=== PATIENT | male | born 1955 | race Caucasian/White ===

== ENCOUNTER 2017-11-29 16:45 | Observation (INO) | payer BC ==
[2017-11-29 17:31] LABS: #Basophils 0.1 thou/uL (0.0-0.2); #Eosinphils 0.4 thou/uL (0.0-0.7); #Lymphocytes 1.4 thou/uL (1.20-3.40); #Monocytes 0.5 thou/uL (0.11-0.59); #Neutrophils 4.4 thou/uL (1.40-6.50); %Basophils 1.1 % (0.0-1.0); %Eosinophils 5.6 % (0.0-10.0); %Lymphocytes 21.3 % (21.0-51.0); %Monocytes 6.7 % (0.0-10.0); %Neutrophils 65.2 % (42.0-75.0); Hemoglobin 15.5 g/dL (14.0-18.0); Mean Corpuscular HGB CONC 35.3 g/dL (32.0-36.0); Mean Corpuscular Volume 84.9 fL (78.0-98.0); Platelet Count 160 thou/uL (130-400); RBC Distribution Width 11.3 % (11.5-14.5); Red Blood Cell (RBC) Count 5.17 mill/uL (4.70-6.10); White Blood Cell (WBC) Count 6.7 thou/uL (4.8-10.8)
[2017-11-29 17:42] LABS: ALT (SGPT) 17 U/L (8-55); AST (SGOT) 14 U/L (5-34); Albumin 4.2 g/dL (3.4-4.8); Alkaline Phosphatase 56 U/L (40-150); Anion Gap 13 mmol/L (10-20); BUN (Urea Nitrogen) 16 mg/dL (8.4-25.7); Bilirubin, Total 0.6 mg/dL (0.2-1.2); Calc. Creatinine Clearance 0 mL/min (70-130); Calcium 9.2 mg/dL (7.8-10.44); Carbon Dioxide 25 mmol/L (23-31); Chloride 108 mmol/L (98-107); Estimated GFR-MDRD 81; Globulin 2.4 g/dL (2.4-3.5); Glucose 93 mg/dL (80-115); Lipase 18 U/L (8-78); Potassium 3.9 mmol/L (3.5-5.1); Protein, Total 6.6 g/dL (5.8-8.1); Sodium 142 mmol/L (136-145)
[2017-11-29 17:43] LABS: CKMB 0.7 ng/mL (0-6.6); Troponin I Less than 0.010 ng/mL (< 0.028)
[2017-11-29] MEDS ORDERED: Nitroglycerin 2% Ointment 1 INCH/1 GM Packet ONE (17:52)
--- NOTE | 2017-11-29 17:56 | RAD ---
CHEST ONE VIEW: 11/29/17 FINDINGS: No comparison. The cardiac silhouette is magnified by projection. Pulmonary vasculature is unremarkable. Mediastinum is midline. Calcified granulomata are consistent with healed granulomatous disease. No lobar consoli dation or evidence of pneumothorax. IMPRESSION: No active cardiopulmonary abnormalities are demonstrated. POS: [facility]
[2017-11-29 20:39] LABS: Troponin I Less than 0.010 ng/mL (< 0.028)
[2017-11-29 20:44] VITALS: BMI 22.8
[2017-11-29] MEDS ORDERED: Propranolol 10 MG TAB PO PRN (20:46)
[2017-11-29] MEDS ORDERED: Ondansetron HCl/PF 4 MG/2 ML Vial IVP PRN (20:47)
[2017-11-29] MEDS ORDERED: Acetaminophen 325 MG TAB PO PRN (20:47)
[2017-11-29] MEDS ORDERED: Nitroglycerin 0.4 MG TAB (25 Tab Bottle) PO PRN (20:49)
[2017-11-29] MEDS ORDERED: HumaLOG 300 UNITS/3 ML VIAL SC PRN (20:50)
[2017-11-29] MEDS ORDERED: Dextrose 5% in Water 1,000 ML IV PRN (20:50)
[2017-11-29] MEDS ORDERED: Dextrose 50% Abboject 50 ML SYRINGE SLOW IVP PRN (20:50)
[2017-11-29] MEDS ORDERED: Atorvastatin Calcium 10 MG TAB PO SCH (21:00)
[2017-11-29] MEDS ORDERED: metFORMIN XR 500 MG TAB PO SCH (21:00)
[2017-11-29] MEDS ORDERED: Lisinopril 2.5 MG TAB PO SCH (21:00)
[2017-11-29] MEDS ORDERED: Zolpidem Tartrate 5 MG TAB PO SCH (21:00)
[2017-11-29 23:25] LABS: Troponin I Less than 0.010 ng/mL (< 0.028)
--- NOTE | 2017-11-30 05:18 | HP ---
TIME OF EVALUATION: 8:35 p.m. PRIMARY CARE PHYSICIAN: Dr. Pipe Ramirez. CODE STATUS: FULL CODE. CHIEF COMPLAINT: Chest pain. HISTORY OF PRESENT ILLNESS: This is a 62-year-old male patient with past medical history of hyperten leona, hyperlipidemia, diabetes type 2, that is usually in well controlled, came to the hospital, also having midsternal chest pain that started around 12, lasted for about 30 minutes, resolved by itself , with no clear triggers; however, he reported having some worsening with exertion, associated with n ausea. He reported this was his very first time having this problem. REVIEW OF SYSTEMS: Constitutional: No fever or chills or generalized weakness. Respiratory: No co ugh, sputum production, or shortness of breath. Cardiovascular: The patient had chest pain. No pal pitations, no shortness of breath. Gastrointestinal: No nausea, no vomiting, diarrhea, or abdominal pain. Central Nervous Systems: No dizziness, headache, or feeling lightheaded. Genitourinary: No burning on urination. Extremities: No leg swelling. All other systems were reviewed and negative except for the findings mentioned above. PAST MEDICAL HISTORY: As mentioned in the HPI. SOCIAL HISTORY: Lives with . PSYCHIATRIC HISTORY: No previous psychiatric history. FAMILY HISTORY: The patient has a brother who had coronary artery disease in the 61 and also mother with coronary artery disease. ALLERGIES: No known drug allergies. REPORTED MEDICATIONS: Ambien, Concerta, Januvia, lisinopril, metformin, propranolol, atenolol, chlor thalidone, atorvastatin. PHYSICAL EXAMINATION: VITAL SIGNS: On presentation, blood pressure 123/84, heart rate 69, respiratory rate was 18, tempera ture 97.7, oxygen saturation is 98 on room air. GENERAL APPEARANCE: Patient is alert, oriented, in no any acute distress. HEENT: Eyes: Normal conjunctivae. Moist oral mucosa. Anicteric. NECK: No JVD. RESPIRATORY: Bilaterally air entry. No rales, no wheezing. Symmetric expansion. CARDIOVASCULAR: Normal rate, regular rhythm. No murmurs, no gallop. EXTREMITIES: No edema. ABDOMEN: Soft, normal bowel sounds. MUSCULOSKELETAL: Baseline range of motion and strength. No tenderness. Peripheral pulses are prese nt. Capillary refill seems to be intact. SKIN: Warm and intact. No pallor, no rash, no redness. NEUROLOGIC: Baseline sensorium. No evidence of any new focal weakness. Baseline speech. Cranial n erve seems to be intact. PSYCHIATRIC: The patient is in a good mood. No anxiety. Oriented, optimal judgment. IMAGING: EKG was reviewed. The patient has normal sinus rhythm at the rate of 69. Only findings fo r acute ischemia. Chest x-ray was reviewed, no acute cardiopulmonary process. LABORATORY DATA: Reviewed. The patient has white count of 6.7, hemoglobin 15.5, MCV 84, platelet co unt 116,000. Glucose was normal. Troponin was negative x2. ASSESSMENT AND PLAN: The patient will be placed in the hospital with following medical problems: 1. Chest pain, rule out acute coronary syndrome. The patient has typical chest pain. Patient has r isk factors including hypertension, diabetes. We will do a stress test in the morning, if the workup is negative, patient is agreeable for the test, he fully understood test in the morning. 2. Uncontrolled diabetes, initially was controlled with glucose [address] the patient o n sliding scale for optimal control. 3. Controlled high blood pressure. Reconcile home medications. Adjust treatment as needed. 4. Hyperlipidemia. Advised to eat with low cholesterol. Reconcile home medications. 5. Deep venous thrombosis prophylaxis.
[2017-11-30 07:10] LABS: #Basophils 0.1 thou/uL (0.0-0.2); #Eosinphils 0.5 thou/uL (0.0-0.7); #Lymphocytes 1.4 thou/uL (1.20-3.40); #Monocytes 0.6 thou/uL (0.11-0.59); #Neutrophils 4.1 thou/uL (1.40-6.50); %Basophils 0.9 % (0.0-1.0); %Eosinophils 6.9 % (0.0-10.0); %Lymphocytes 21.6 % (21.0-51.0); %Monocytes 9.5 % (0.0-10.0); %Neutrophils 61.1 % (42.0-75.0); Hemoglobin 14.6 g/dL (14.0-18.0); Mean Corpuscular HGB CONC 33.8 g/dL (32.0-36.0); Mean Corpuscular Hemoglobin 31.2 pg (27.0-31.0); Mean Corpuscular Volume 92.4 fL (78.0-98.0); Mean Platelet Volume 8.1 fL (7.4-10.4); Platelet Count 151 thou/uL (130-400); RBC Distribution Width 12.2 % (11.5-14.5); Red Blood Cell (RBC) Count 4.69 mill/uL (4.70-6.10); White Blood Cell (WBC) Count 6.6 thou/uL (4.8-10.8)
[2017-11-30 07:12] LABS: Anion Gap 8 mmol/L (10-20); BUN (Urea Nitrogen) 17 mg/dL (8.4-25.7); Calc. Creatinine Clearance 79 mL/min (70-130); Calcium 9.1 mg/dL (7.8-10.44); Carbon Dioxide 29 mmol/L (23-31); Chloride 108 mmol/L (98-107); Estimated GFR-MDRD 79; Glucose 104 mg/dL (80-115); Potassium 3.9 mmol/L (3.5-5.1); Sodium 141 mmol/L (136-145)
[2017-11-30] MEDS ORDERED: Aspirin 325 MG TAB PO SCH (09:00)
[2017-11-30] MEDS ORDERED: Methylphenidate Hcl [Concerta] 18 MG PO SCH (09:00)
[2017-11-30] MEDS ORDERED: Alogliptin 6.25 MG TAB PO SCH (09:00)
[2017-11-30] MEDS ORDERED: Enoxaparin Sodium 40 MG/0.4 ML SYRINGE SC SCH (09:00)
[2017-11-30 11:19] VITALS: BP 111/74; TEMP 98.5
--- NOTE | 2017-12-01 00:45 | DIS ---
DATE OF ADMISSION: 11/29/2017 DATE OF DISCHARGE: 11/30/2017 DISCHARGE DIAGNOSES: As of the following; 1. Chest pain. 2. History of anxiety. 3. History of hypertension. 4. History of diabetes. 5. History of hyperlipidemia. HOSPITAL COURSE: The patient is a very pleasant 62-year-old male with a history of hypertension, noe reece, who presented to the hospital with complaints of shortness of breath and chest tightness. The patient's troponins x3 were negative. The patient stated that he was eating food when he had this s ignificant chest discomfort. Patient underwent a treadmill stress test which was negative. His ches t pain was most likely due to esophageal spasms. Patient was discharged home. He will follow up wit h his PCP as an outpatient. The patient was asked to come back if any of the symptoms worsen or his chest pain return. PHYSICAL EXAMINATION: VITAL SIGNS: 98.5, 70, 16, 98% on room air, 111/74. GENERAL: He is awake, alert, oriented x3, does not appear in distress. CARDIOVASCULAR: S1, S2 present. No murmurs, rubs, or gallops. ABDOMEN: Soft, nontender. Bowel sounds are present x2. EXTREMITIES: No edema. DISCHARGE INSTRUCTIONS: Again, the patient will be discharged home. He will follow up with PCP as kimberli bhat. MEDICATIONS: As of the following, propranolol 5 mg p.r.n. , Januvia 50 mg at bedtime, metformin 1000 mg at bedtime, Ambien 5 mg at bedtime, lisinopril 2.5 mg at bedtime, atorvastatin 10 mg at bedt huber, and methylphenidate 18 mg p.o. daily.
== END 2017-11-30 11:33 | disposition home or self-care (01) ==
LOC: SCSER 16:45 → 2SW 18:40
PROVIDERS: ADMIT Family Medicine; ATTEND Family Medicine
DX: R07.9 Chest pain, unspecified (principal); E11.9 Type 2 diabetes mellitus without complications; E78.5 Hyperlipidemia, unspecified; I10 Essential (primary) hypertension; Z79.84 Long term (current) use of oral hypoglycemic drugs; Z79.899 Other long term (current) drug therapy
CPT/HCPCS: 36415; 36416; 71045; 80048; 80053; 82553; 83690; 84484; 85025; 93005; 93017; 94760; 96372; G0378; J1650

== ENCOUNTER 2018-12-16 17:48 | Emergency (ER) | payer BC ==
[2018-12-16] MEDS ORDERED: Adacel (T-DAP) 0.5 ML SYRINGE ONE (18:12)
--- NOTE | 2018-12-16 18:29 | RAD ---
LEFT LITTLE FINGER: 12/16/18 HISTORY: Injury to finger. There is a soft tissue laceration to the tip of the finger. There is no underlying fracture. No radio paque foreign bodies. IMPRESSION: No evidence of fracture. POS: [facility]
[2018-12-16] MEDS ORDERED: Lidocaine 1% 20 ML MDV ONE (18:55)
[2018-12-16] MEDS ORDERED: Bacitracin 1 PK ONE (19:46)
== END 2018-12-16 19:52 | disposition home or self-care (01) ==
LOC: SCSER 17:48
DX: S61.217A Laceration without foreign body of left little finger without damage to nail, initial encounter (principal); E11.9 Type 2 diabetes mellitus without complications; E78.5 Hyperlipidemia, unspecified; I10 Essential (primary) hypertension; F41.9 Anxiety disorder, unspecified; Z23 Encounter for immunization; E78.00 Pure hypercholesterolemia, unspecified; W27.8XXA Contact with other nonpowered hand tool, initial encounter
CPT/HCPCS: 11740; 12001; 90471; 90715; J2001